=== PATIENT | male | born 1965 | race Hispanic/Latino ===

== ENCOUNTER 2017-12-21 21:40 | Emergency (ER) | payer MEDICARE ==
[~2017-12-21 21:40] MED LIST: ALPR-410 PO; ASPI81TA40 PO; GABA-529 PO; HYDR-4060 PO; INSU3INS5 SQ; LEVO50TA11 PO; LORA10TA7 PO; LOSA100T29 PO; PANT40TA25 PO; PHOSLOC PO; PRAV40TA3 PO; TRAZ-147 PO
[2017-12-21] MEDS ORDERED: OCTYL 2-CYANOACRYLATE 1 EACH TP ONE (22:31)
== END 2017-12-21 23:32 | disposition home or self-care (01) ==
LOC: EDH 21:40
DX: S01.81XA Laceration without foreign body of other part of head, initial encounter (principal); E11.22 Type 2 diabetes mellitus with diabetic chronic kidney disease; N18.6 End stage renal disease; E78.5 Hyperlipidemia, unspecified; E07.9 Disorder of thyroid, unspecified; F32.9 Major depressive disorder, single episode, unspecified; Z87.891 Personal history of nicotine dependence; W08.XXXA Fall from other furniture, initial encounter; Y93.89 Activity, other specified; Y92.89 Other specified places as the place of occurrence of the external cause; Y99.8 Other external cause status
CPT/HCPCS: 12011